=== PATIENT | male | born 2000 | race Caucasian/White ===

== ENCOUNTER 2019-05-15 02:36 | Emergency (ER) | payer SELFPAY ==
[~2019-05-15] VITALS: Ht 167.6 cm; Wt 56.7 kg
[2019-05-15 02:45] VITALS: BP 138/88
--- NOTE | 2019-05-15 02:45 | NUR ---
ED Nurse Note: Patient ABI [facility]antz from [facility]ber living facility due to OD. Per EMS, pt took fentanyl powder, unk amount. Pt was found unconscious, Narcan 4mg was given officer captain. Pt alert and orientedx3, verbally responsive. No SOB. Not in any distress. Pt placed on threat monitoring analyst.
--- NOTE | 2019-05-15 02:49 | NUR ---
ED Nurse Note: ERMD at bedside.
--- NOTE | 2019-05-15 03:49 | NUR ---
ED Nurse Note: [phone]: Ty (friend)
[2019-05-15 04:00] VITALS: BP 135/76
[2019-05-15 05:05] VITALS: BP 142/74
--- NOTE | 2019-05-15 05:05 | NUR ---
ED Nurse Note: Pt cleared by ERMD for discharge. DC instructions was given and explained to pt and verbalized understanding of teachings. All medical deviecs such as ID band removed. Pt is AAO x4, ambulatory and left with all personal belongings. Picked up by his friend.
--- NOTE | 2019-05-15 05:57 | Emergency Room Report ---
History of Present Illness General Chief Complaint: Substance Abuse Source: Patient, EMS Present Illness HPI 19-year-old male presents ED status post overdose. Patient residing in a sober living facility. Reportedly used fentanyl powder and became unresponsive. Given Narcan by EMS and patient woke up. On arrival patient is alert oriented x3. States he feels fine. Admits to using fentanyl. States he was celebrating. Denies SI or HI. Denies nausea or vomiting. No other aggravating relieving factors. Denies any other associated symptoms COVID-19 risk:Travel to affect: No Has patient experienced guallpa: No Allergies: Coded Allergies: No Known Allergies (Unverified , 05/15/19) Patient History Past Medical History: none Past Surgical History: none Pertinent Family History: none Social History: Reports: drug use; Denies: smoking, alcohol use Immunizations: UTD Reviewed Nursing Documentation: PMH: Agreed; PSxH: Agreed Review of Systems All Other Systems: negative except mentioned in HPI Physical Exam Vital Signs Date Time Temp Pulse Resp B/P (MAP) Pulse Ox O2 Delivery O2 Flow Rate FiO2 05/15/19 02:40 97.5 88 15 138/88 (105) 97 Room Air Sp02 EP Interpretation: reviewed, normal General Appearance: no apparent distress, alert, GCS 15, non-toxic Head: normocephalic, atraumatic Eyes: bilateral eye normal inspection, bilateral eye PERRL ENT: hearing grossly normal, normal pharynx, no angioedema, normal voice Neck: full range of motion, supple/symm/no masses Respiratory: chest non-tender, lungs clear, normal breath sounds, speaking full sentences Cardiovascular #1: regular rate, rhythm, no edema Cardiovascular #2: 2+ carotid (R), 2+ carotid (L), 2+ radial (R), 2+ radial (L) , 2+ dorsalis pedis (R), 2+ dorsalis pedis (L) Gastrointestinal: normal bowel sounds, non tender, soft, non-distended, no guarding, no rebound Rectal: deferred Genitourinary: normal inspection, no CVA tenderness Musculoskeletal: back normal, normal range of motion, gait/station normal, non- tender Neurologic: alert, motor strength/tone normal, oriented x3, sensory intact, responsive, speech normal Psychiatric: judgement/insight normal, memory normal, mood/affect normal, no suicidal/homicidal ideation Reflexes: 3+ bicep (R), 3+ bicep (L), 3+ tricep (R), 3+ tricep (L), 3+ knee (R) , 3+ knee (L) Lymphatic: no adenopathy Medical Decision Making Diagnostic Impression: Primary Impression: Substance abuse ER Course Hospital Course 19 yo M presents s/p overdose on fentanyl. AAOX3 after narcan Clinical course Patient placed on stretcher. Given that patient is able to provide an adequate history, I see no need to check blood work or place an IV. Observed on site monitor. Vitals stable. No apnea. Protecting airway. discussed findings with patient will discharge home. Safe for discharge for close outpatient follow-up. I will provide referrals Diagnosis - substance abuse stable and discharged to home. Followup with PMD. Return to ED if symptoms recur or worsen Last Vital Signs Date Time Temp Pulse Resp B/P (MAP) Pulse Ox O2 Delivery O2 Flow Rate FiO2 05/15/19 05:05 98.0 87 17 142/74 99 Room Air Status: improved Disposition: HOME, SELF-CARE Condition: Stable [facility] Patient Instructions: Substance Use Disorder Cain Perales MD May 15, 2019 05:57
== END 2019-05-15 05:05 | disposition home or self-care (01) ==
LOC: EDBD 02:36 → EMR 02:52
DX: F19.10 Other psychoactive substance abuse, uncomplicated (principal)
CPT/HCPCS: 99282